=== PATIENT | female | born 1975 | race Hispanic/Latino ===

== ENCOUNTER 2020-06-28 03:59 | Emergency (ER) | payer SELFPAY ==
[2020-06-28 04:25] LABS: #Basophils 0.1 thou/uL (0.0-0.2); #Eosinphils 0.1 thou/uL (0.0-0.7); #Lymphocytes 3.1 thou/uL (1.20-3.40); #Monocytes 0.6 thou/uL (0.11-0.59); #Neutrophils 7.3 thou/uL (1.40-6.50); %Basophils 1.1 % (0.0-1.0); %Eosinophils 1.3 % (0.0-10.0); %Lymphocytes 27.5 % (21.0-51.0); %Monocytes 5.2 % (0.0-10.0); Hemoglobin 13.3 g/dL (12.0-16.0); Mean Corpuscular HGB CONC 33.1 g/dL (32.0-36.0); Mean Corpuscular Hemoglobin 30.1 pg (27.0-31.0); Mean Corpuscular Volume 90.9 fL (78.0-98.0); Mean Platelet Volume 6.5 fL (7.4-10.4); Platelet Count 429 thou/uL (130-400); RBC Distribution Width 13.8 % (11.5-14.5); Red Blood Cell (RBC) Count 4.43 mill/uL (4.20-5.40); White Blood Cell (WBC) Count 11.3 thou/uL (4.8-10.8)
[2020-06-28] MEDS ORDERED: Mag-Al 1200 mg/1200 mg/30 ML UDCUP ONE (04:25)
[2020-06-28] MEDS ORDERED: Lidocaine Viscous Sol 2% 15 ml UD Cup ONE (04:25)
[2020-06-28 04:52] LABS: ALT (SGPT) 23 U/L (8-55); AST (SGOT) 27 U/L (5-34); Albumin 3.8 g/dL (3.5-5.0); Alkaline Phosphatase 144 U/L (40-110); Anion Gap 13 mmol/L (10-20); BUN (Urea Nitrogen) 9 mg/dL (7.0-18.7); Bilirubin, Total 0.3 mg/dL (0.2-1.2); CK (CPK) 89 U/L (29-168); Calc. Creatinine Clearance 0 mL/min (70-130); Calcium 8.6 mg/dL (7.8-10.44); Carbon Dioxide 27 mmol/L (22-29); Chloride 101 mmol/L (98-107); Globulin 3.1 g/dL (2.4-3.5); Glucose 113 mg/dL (70-105); Lipase 12 U/L (8-78); Protein, Total 6.9 g/dL (6.0-8.3); Sodium 137 mmol/L (136-145)
[2020-06-28] MEDS ORDERED: hydrOXYzine 25 MG TAB ONE (05:11)
--- NOTE | 2020-06-28 07:51 | RAD ---
Chest AP view INDICATION: Burning sensation all over chest COMPARISON: Prior exam dated March 06, 2020 FINDINGS: Lungs: The lungs are clear Cardiac silhouette: Mild cardiomegaly is stable Pulmonary vasculature: Normal Pleural spaces: No pleural effusion or pneumothorax is demonstrated. Upper abdomen: No abnormality seen. Osseous structures: No acute osseous abnormality. Additional findings: None. IMPRESSION: No acute cardiopulmonary abnormality.
== END 2020-06-28 05:48 | disposition home or self-care (01) ==
LOC: ERS 03:59
DX: F41.9 Anxiety disorder, unspecified (principal); I10 Essential (primary) hypertension; Z79.899 Other long term (current) drug therapy
CPT/HCPCS: 36415; 71045; 80053; 82550; 83690; 84484; 85025; 93005

== ENCOUNTER 2020-09-24 19:28 | Emergency (ER) | payer SELFPAY ==
[2020-09-24 20:21] LABS: #Basophils 0.1 thou/uL (0.0-0.2); #Eosinphils 0.1 thou/uL (0.0-0.7); #Lymphocytes 2.9 thou/uL (1.20-3.40); #Monocytes 0.7 thou/uL (0.11-0.59); #Neutrophils 6.5 thou/uL (1.40-6.50); %Basophils 1.1 % (0.0-1.0); %Eosinophils 1.1 % (0.0-10.0); %Lymphocytes 27.9 % (21.0-51.0); %Monocytes 6.4 % (0.0-10.0); %Neutrophils 63.5 % (42.0-75.0); Hemoglobin 14.6 g/dL (12.0-16.0); Mean Corpuscular HGB CONC 33.2 g/dL (32.0-36.0); Mean Corpuscular Hemoglobin 31.2 pg (27.0-31.0); Mean Corpuscular Volume 94.1 fL (78.0-98.0); Mean Platelet Volume 6.9 fL (7.4-10.4); Platelet Count 301 thou/uL (130-400); Red Blood Cell (RBC) Count 4.67 mill/uL (4.20-5.40); White Blood Cell (WBC) Count 10.3 thou/uL (4.8-10.8)
[2020-09-24 20:28] LABS: Bilirubin Negative (Negative); Blood, Urine Negative (Negative); Clarity Clear (Clear); Glucose, Urine (Dipstick) Normal (Negative); Ketone, Urine Negative (Negative); Leukocyte Negative Leu/uL (Negative); Nitrite Negative (Negative); Protein, Urine (Dipstick) Negative (Neg-Trace); Specific Gravity, Urine 1.004 (1.002-1.036); Urobilinogen Normal mg/dL (Less than 2); pH, Urine 5.5 (5.0-9.0)
[2020-09-24] MEDS ORDERED: Lorazepam 2 MG/ML VIAL ONE (20:28)
[2020-09-24 20:30] LABS: Pregnancy Test - Urine (BHCG) Negative (Negative); Pregu Control Background? CLEAR/WHITE (CLR/WHITE); Pregu Control Bar Appear? YES (CONTROL BAR); Specific Gravity 1.004 (1.002-1.036)
[2020-09-24 20:37] LABS: Amphetamine Not Detected (NotDetected); Barbiturates Screen Not Detected (NotDetected); Benzodiazepine Screen Not Detected (NotDetected); Cocaine Metabolite Screen Not Detected (NotDetected); Medtox Control Line Valid? VALID (VALID); Medtox Reader # READER 4; Methadone Not Detected (NotDetected); Methamphetamine Not Detected (NotDetected); Opiate Screen Not Detected (NotDetected); Oxycodone Screen Not Detected (NotDetected); Phencyclidine (PCP) Not Detected (NotDetected); THC/Cannabinoid Screen Not Detected (NotDetected); Tricyclic Screen Not Detected (NotDetected)
[2020-09-24 20:41] LABS: ALT (SGPT) 109 U/L (8-55); AST (SGOT) 163 U/L (5-34); Albumin 3.8 g/dL (3.5-5.0); Alkaline Phosphatase 183 U/L (40-110); Anion Gap 20 mmol/L (10-20); BUN (Urea Nitrogen) 5 mg/dL (7.0-18.7); Bilirubin, Total 0.6 mg/dL (0.2-1.2); Calc. Creatinine Clearance 0 mL/min (70-130); Calcium 8.6 mg/dL (7.8-10.44); Carbon Dioxide 19 mmol/L (22-29); Chloride 103 mmol/L (98-107); Globulin 3.7 g/dL (2.4-3.5); Glucose 101 mg/dL (70-105); Potassium 3.5 mmol/L (3.5-5.1); Protein, Total 7.5 g/dL (6.0-8.3); Sodium 138 mmol/L (136-145)
[2020-09-24 21:06] LABS: Acetaminophen Less than 6.0 mcg/mL (10.0-30.0); Alcohol 340 mg/dL (Less than 10); Salicylate Less than 8.0 mg/dL (15.0-30.0)
[2020-09-24] MEDS ORDERED: Haloperidol Lactate 5 MG/ML VIAL ONE (21:39)
[2020-09-25] MEDS ORDERED: Acetaminophen 325 MG TAB ONE (09:23)
[2020-09-25] MEDS ORDERED: clonazePAM 1 MG TAB ONE (09:23)
== END 2020-09-25 10:32 | disposition home or self-care (01) ==
LOC: ERS 19:28
DX: F10.129 Alcohol abuse with intoxication, unspecified (principal); F43.20 Adjustment disorder, unspecified; F41.9 Anxiety disorder, unspecified; Z79.899 Other long term (current) drug therapy
CPT/HCPCS: 36415; 80053; 80306; 80307; 81003; 81025; 84443; 85025; 93005; 96372; 96374; J1630; J2060

== ENCOUNTER 2021-08-11 11:54 | Inpatient (IN) | payer SELFPAY ==
[~2021-08-11 11:54] MED LIST: Iopamidol 370 76% 100 ML VIAL ONE
[2021-08-11] MEDS ORDERED: Lorazepam 2 MG/ML VIAL ONE ×3 (12:51→18:00)
[2021-08-11] MEDS ORDERED: Pantoprazole 40 MG VIAL ONE ×2 (12:51→12:52)
[2021-08-11] MEDS ORDERED: Ondansetron PF 4 MG/2 ML Vial ONE (12:51)
[2021-08-11] MEDS ORDERED: Lidocaine 4% Cream 5 GM TUBE w/ Tegaderm ONE (13:17)
[2021-08-11 13:24] LABS: #Basophils 0.1 thou/uL (0.0-0.2); #Lymphocytes 1.6 thou/uL (1.20-3.40); #Monocytes 0.5 thou/uL (0.11-0.59); #Neutrophils 5.7 thou/uL (1.40-6.50); %Basophils 1.1 % (0.0-1.0); %Eosinophils 0.2 % (0.0-10.0); %Lymphocytes 20.4 % (21.0-51.0); %Neutrophils 72.4 % (42.0-75.0); Hemoglobin 15.2 g/dL (12.0-16.0); Mean Corpuscular HGB CONC 33.5 g/dL (32.0-36.0); Mean Corpuscular Hemoglobin 34.1 pg (27.0-31.0); Mean Platelet Volume 6.6 fL (7.4-10.4); Platelet Count 414 thou/uL (130-400); RBC Distribution Width 15.1 % (11.5-14.5); Red Blood Cell (RBC) Count 4.46 mill/uL (4.20-5.40); White Blood Cell (WBC) Count 7.9 thou/uL (4.8-10.8)
[2021-08-11 13:33] LABS: Prothrombin Time 13.4 sec (12.0-14.7)
[2021-08-11 13:34] LABS: BHCG - Serum Negative (NEGATIVE); PTT 27.4 sec (22.9-36.1); Pregs Control Background? CLEAR/WHITE (CLR/WHITE); Pregs Control Bar Appear? YES (CONTROL BAR)
[2021-08-11 13:51] LABS: ALT (SGPT) 66 U/L (8-55); AST (SGOT) 114 U/L (5-34); Alkaline Phosphatase 181 U/L (40-110); Anion Gap 20 mmol/L (10-20); BUN (Urea Nitrogen) Less than 4 mg/dL (7.0-18.7); Bilirubin, Total 1.3 mg/dL (0.2-1.2); CK (CPK) 139 U/L (29-168); Calc. Creatinine Clearance 0 mL/min (70-130); Calcium 9.4 mg/dL (7.8-10.44); Carbon Dioxide 25 mmol/L (22-29); Chloride 96 mmol/L (98-107); Globulin 4.1 g/dL (2.4-3.5); Glucose 116 mg/dL (70-105); Protein, Total 8.1 g/dL (6.0-8.3); Sodium 138 mmol/L (136-145)
[2021-08-11 14:06] LABS: Potassium 2.7 mmol/L (3.5-5.1)
[2021-08-11] MEDS ORDERED: Magnesium 2 GM/50 ML BAG (IN WATER) ONE (14:33)
[2021-08-11] MEDS ORDERED: NS 0.9% w/ 20 MEQ KCL 1,000 ML ONE ×2 (14:33→18:01)
[2021-08-11 16:02] LABS: Bilirubin Negative (Negative); Blood, Urine Trace (Negative); Clarity Clear (Clear); Glucose, Urine (Dipstick) Negative (Negative); Ketone, Urine Negative (Negative); Leukocyte Negative (Negative); Nitrite Negative (Negative); Protein, Urine (Dipstick) Negative (Neg-Trace); Urobilinogen 0.2 mg/dL (Less than 2)
[2021-08-11 16:09] LABS: RBC/HPF 0-3 HPF (0-3); WBC/HPF 0-3 HPF (0-3)
[2021-08-11] MEDS ORDERED: Ondansetron ODT 4 MG TAB PO PRN ×2 (17:58→18:00)
[2021-08-11] MEDS ORDERED: Ondansetron PF 4 MG/2 ML Vial IVP PRN (17:58)
[2021-08-11] MEDS ORDERED: Acetaminophen 650 MG Suppository PR PRN (17:58)
[2021-08-11] MEDS ORDERED: Acetaminophen 325 MG TAB PO PRN (17:58)
[2021-08-11] MEDS ORDERED: Electrolyte Replacement Protocol 1 EACH FS SCH (18:00)
[2021-08-11] MEDS ORDERED: diphenhydrAMINE 25 MG CAP ONE (18:00)
[2021-08-11] MEDS ORDERED: Thiamine HCl 200 MG/2 ML VIAL SLOW IVP SCH (18:00)
[2021-08-11] MEDS ORDERED: Lorazepam 2 MG/ML VIAL IM PRN (18:00)
[2021-08-11 18:14] LABS: Magnesium 1.7 mg/dL (1.6-2.6)
[2021-08-11] MEDS ORDERED: Electrolyte Replacement Protocol FS PRN (18:15)
[2021-08-11] MEDS ORDERED: Multivit, Therapeutic 1 TAB PO SCH (18:15)
[2021-08-11] MEDS ORDERED: Folic Acid 1 MG TAB PO SCH (18:15)
[2021-08-11 18:58] LABS: Phosphorus 1.5 mg/dL (2.3-4.7)
[2021-08-11] MEDS ORDERED: Bacitracin 1 PK ONE (19:04)
[2021-08-11] MEDS: Sucralfate 1 GM TAB PO SCH (21:22)
[2021-08-11] MEDS: Potassium Chloride 20 MEQ TAB PO SCH (21:27)
[2021-08-11] MEDS: Lorazepam 1 MG TAB PO SCH (21:28)
[2021-08-11] MEDS: Pantoprazole 40 MG VIAL IVP SCH (21:31)
[2021-08-11] MEDS: Lorazepam 1 MG TAB PO PRN (21:33)
[2021-08-11] MEDS: diphenhydrAMINE 25 MG CAP PO PRN (21:35)
[2021-08-11] MEDS ORDERED: Magnesium 2 GM/50 ML 2 GM in Premix Bag 1 BAG IVPB SCH (22:30)
[2021-08-11 22:34] VITALS: BMI 42.4
[2021-08-11 23:32] LABS: Amphetamine Not Detected (NotDetected); Barbiturates Screen Not Detected (NotDetected); Benzodiazepine Screen Detected (NotDetected); Cocaine Metabolite Screen Not Detected (NotDetected); Methadone Not Detected (NotDetected); Methamphetamine Not Detected (NotDetected); Opiate Screen Not Detected (NotDetected); Oxycodone Screen Not Detected (NotDetected); Phencyclidine (PCP) Not Detected (NotDetected); THC/Cannabinoid Screen Not Detected (NotDetected); Tricyclic Screen Not Detected (NotDetected)
[2021-08-12] MEDS: Potassium Chloride 20 MEQ TAB PO SCH ×3 (00:05→03:01)
[2021-08-12] MEDS: PHOS-NAK 1 PKT PACK PO SCH ×6 (00:05→17:49)
[2021-08-12] MEDS: Lorazepam 1 MG TAB PO SCH ×4 (00:23→17:49)
[2021-08-12] MEDS ORDERED: Sodium Chloride 0.9% 1,000 ML IV SCH (05:45)
[2021-08-12] MEDS: diphenhydrAMINE 25 MG CAP PO PRN ×2 (05:59→20:38)
[2021-08-12] MEDS: Sucralfate 1 GM TAB PO SCH ×4 (06:29→20:38)
[2021-08-12] MEDS: Lorazepam 1 MG TAB PO PRN (09:16)
[2021-08-12] MEDS ORDERED: Magnevist 469MG/ML 20 ML VIAL ONE (10:24)
[2021-08-12 10:28] LABS: #Basophils 0.1 thou/uL (0.0-0.2); #Eosinphils 0.1 thou/uL (0.0-0.7); #Lymphocytes 1.1 thou/uL (1.20-3.40); #Monocytes 0.4 thou/uL (0.11-0.59); #Neutrophils 4.4 thou/uL (1.40-6.50); %Basophils 0.9 % (0.0-1.0); %Eosinophils 0.9 % (0.0-10.0); %Lymphocytes 18.7 % (21.0-51.0); %Monocytes 7.2 % (0.0-10.0); %Neutrophils 72.3 % (42.0-75.0); Hemoglobin 13.3 g/dL (12.0-16.0); Mean Corpuscular HGB CONC 32.6 g/dL (32.0-36.0); Mean Corpuscular Hemoglobin 33.8 pg (27.0-31.0); Mean Platelet Volume 6.5 fL (7.4-10.4); Platelet Count 362 thou/uL (130-400); RBC Distribution Width 14.8 % (11.5-14.5); Red Blood Cell (RBC) Count 3.94 mill/uL (4.20-5.40)
[2021-08-12 11:06] LABS: Anion Gap 18 mmol/L (10-20); BUN (Urea Nitrogen) Less than 4 mg/dL (7.0-18.7); Calc. Creatinine Clearance 198 mL/min (70-130); Calcium 8.4 mg/dL (7.8-10.44); Carbon Dioxide 22 mmol/L (22-29); Chloride 103 mmol/L (98-107); Glucose 115 mg/dL (70-105); Potassium 4.1 mmol/L (3.5-5.1); Sodium 139 mmol/L (136-145)
[2021-08-12 11:08] LABS: Phosphorus 1.6 mg/dL (2.3-4.7)
[2021-08-12] MEDS: Multivitamins, Adult 10 ML, Folic Acid 1 MG in Dextrose 5 %-0.45 % NaCl 1,000 ML IV SCH (11:20)
[2021-08-12] MEDS: Pantoprazole 40 MG VIAL IVP SCH ×2 (11:21→20:41)
[2021-08-12] MEDS: Enoxaparin Sodium 40 MG/0.4 ML SYRINGE SC SCH (11:21)
[2021-08-12] MEDS: Multivit, Therapeutic 1 TAB PO SCH (11:22)
[2021-08-12] MEDS: Folic Acid 1 MG TAB PO SCH (11:22)
[2021-08-12] MEDS: Calamine/Zinc Oxide 177 ML LOTION TP SCH ×3 (11:23→20:41)
[2021-08-12] MEDS: Thiamine HCl 200 MG/2 ML VIAL SLOW IVP SCH (11:36)
[2021-08-12 14:46] LABS: SARS-CoV-2 PCR by NAA Not Detected (NotDetected)
[2021-08-12] MEDS ORDERED: Lorazepam 1 MG TAB PO PRN (18:01)
[2021-08-13] MEDS: Lorazepam 1 MG TAB PO SCH ×4 (00:53→15:59)
[2021-08-13] MEDS: diphenhydrAMINE 25 MG CAP PO PRN ×2 (05:50→20:14)
[2021-08-13 06:23] LABS: #Eosinphils 0.1 thou/uL (0.0-0.7); #Lymphocytes 1.5 thou/uL (1.20-3.40); #Monocytes 0.4 thou/uL (0.11-0.59); #Neutrophils 4.8 thou/uL (1.40-6.50); %Basophils 0.5 % (0.0-1.0); %Eosinophils 0.9 % (0.0-10.0); %Lymphocytes 22.2 % (21.0-51.0); %Monocytes 6.4 % (0.0-10.0); Hemoglobin 12.6 g/dL (12.0-16.0); Mean Corpuscular HGB CONC 32.1 g/dL (32.0-36.0); Mean Corpuscular Hemoglobin 33.5 pg (27.0-31.0); Mean Platelet Volume 6.8 fL (7.4-10.4); Platelet Count 354 thou/uL (130-400); RBC Distribution Width 14.7 % (11.5-14.5); Red Blood Cell (RBC) Count 3.74 mill/uL (4.20-5.40); White Blood Cell (WBC) Count 6.8 thou/uL (4.8-10.8)
[2021-08-13] MEDS: Sucralfate 1 GM TAB PO SCH ×4 (06:28→20:14)
[2021-08-13 06:43] LABS: ALT (SGPT) 38 U/L (8-55); AST (SGOT) 64 U/L (5-34); Albumin 3.2 g/dL (3.5-5.0); Alkaline Phosphatase 131 U/L (40-110); Bilirubin, Direct 0.3 mg/dL (0.1-0.3); Bilirubin, Total 1.2 mg/dL (0.2-1.2); Protein, Total 7.1 g/dL (6.0-8.3)
[2021-08-13 07:00] LABS: HBSAB Concentration Less than 8.00 mIU/mL; HBSAg Index 0.27 S/CO (0-0.99); Hep B Surf AB Non-Reactive (NonReactive); Hep B Surf Ag Non-Reactive S/CO (NonReactive); Hep C IgG Ab Non-Reactive (NonReactive); Hep C Index 0.09 S/CO (0-0.79)
[2021-08-13 07:48] LABS: Anion Gap 15 mmol/L (10-20); BUN (Urea Nitrogen) 4 mg/dL (7.0-18.7); Calc. Creatinine Clearance 214 mL/min (70-130); Calcium 7.7 mg/dL (7.8-10.44); Carbon Dioxide 27 mmol/L (22-29); Chloride 103 mmol/L (98-107); Glucose 94 mg/dL (70-105); Phosphorus 2.6 mg/dL (2.3-4.7); Sodium 141 mmol/L (136-145)
[2021-08-13] MEDS ORDERED: Labetalol HCl 100 MG/20 ML VIAL ONE (08:28)
[2021-08-13] MEDS: Calamine/Zinc Oxide 177 ML LOTION TP SCH ×3 (10:06→20:18)
[2021-08-13] MEDS: Multivit, Therapeutic 1 TAB PO SCH (10:06)
[2021-08-13] MEDS: Enoxaparin Sodium 40 MG/0.4 ML SYRINGE SC SCH (10:06)
[2021-08-13] MEDS: Folic Acid 1 MG TAB PO SCH (10:06)
[2021-08-13] MEDS: Pantoprazole 40 MG VIAL IVP SCH ×2 (10:07→20:19)
[2021-08-13] MEDS: Multivitamins, Adult 10 ML, Folic Acid 1 MG in Dextrose 5 %-0.45 % NaCl 1,000 ML IV SCH (10:11)
[2021-08-13] MEDS: Thiamine HCl 200 MG/2 ML VIAL SLOW IVP SCH (10:51)
[2021-08-13] MEDS: Lorazepam 0.5 MG TAB PO SCH (17:04)
[2021-08-13] MEDS ORDERED: Lorazepam 1 MG TAB PO PRN (18:01)
[2021-08-14] MEDS: Lorazepam 0.5 MG TAB PO SCH ×3 (00:27→13:04)
[2021-08-14 06:21] LABS: #Basophils 0.1 thou/uL (0.0-0.2); #Eosinphils 0.1 thou/uL (0.0-0.7); #Lymphocytes 1.8 thou/uL (1.20-3.40); #Monocytes 0.5 thou/uL (0.11-0.59); #Neutrophils 5.5 thou/uL (1.40-6.50); %Basophils 1.2 % (0.0-1.0); %Lymphocytes 22.4 % (21.0-51.0); %Monocytes 6.2 % (0.0-10.0); %Neutrophils 69.3 % (42.0-75.0); Hemoglobin 13.3 g/dL (12.0-16.0); Mean Corpuscular HGB CONC 33.1 g/dL (32.0-36.0); Mean Corpuscular Hemoglobin 34.5 pg (27.0-31.0); Mean Platelet Volume 6.7 fL (7.4-10.4); Platelet Count 381 thou/uL (130-400); RBC Distribution Width 14.8 % (11.5-14.5); Red Blood Cell (RBC) Count 3.86 mill/uL (4.20-5.40)
[2021-08-14] MEDS: Sucralfate 1 GM TAB PO SCH ×4 (06:21→20:57)
[2021-08-14] MEDS: diphenhydrAMINE 25 MG CAP PO PRN ×3 (06:21→20:57)
[2021-08-14 06:42] LABS: Anion Gap 12 mmol/L (10-20); BUN (Urea Nitrogen) 5 mg/dL (7.0-18.7); Calc. Creatinine Clearance 208 mL/min (70-130); Carbon Dioxide 26 mmol/L (22-29); Chloride 104 mmol/L (98-107); Glucose 104 mg/dL (70-105); Phosphorus 2.7 mg/dL (2.3-4.7); Potassium 3.4 mmol/L (3.5-5.1); Sodium 139 mmol/L (136-145)
[2021-08-14] MEDS ORDERED: Potassium Chloride 20 MEQ TAB PO SCH (07:45)
[2021-08-14] MEDS: Multivitamins, Adult 10 ML, Folic Acid 1 MG in Dextrose 5 %-0.45 % NaCl 1,000 ML IV SCH (10:02)
[2021-08-14] MEDS: Pantoprazole 40 MG VIAL IVP SCH ×2 (10:03→20:58)
[2021-08-14] MEDS: Folic Acid 1 MG TAB PO SCH (10:03)
[2021-08-14] MEDS: Enoxaparin Sodium 40 MG/0.4 ML SYRINGE SC SCH (10:03)
[2021-08-14] MEDS: Calamine/Zinc Oxide 177 ML LOTION TP SCH ×3 (10:04→21:10)
[2021-08-14] MEDS: Multivit, Therapeutic 1 TAB PO SCH (10:04)
[2021-08-14] MEDS: Thiamine HCl 200 MG/2 ML VIAL SLOW IVP SCH (10:24)
[2021-08-14 14:54] LABS: Potassium 3.8 mmol/L (3.5-5.1)
[2021-08-14] MEDS ORDERED: Lorazepam 0.5 MG TAB PO PRN (18:01)
[2021-08-14] MEDS ORDERED: Thiamine 100 MG TAB PO SCH (18:15)
[2021-08-15 07:52] VITALS: BP 119/74; TEMP 97.8
[2021-08-15] MEDS: Sucralfate 1 GM TAB PO SCH (08:56)
[2021-08-15] MEDS: Folic Acid 1 MG TAB PO SCH (08:56)
[2021-08-15] MEDS: Enoxaparin Sodium 40 MG/0.4 ML SYRINGE SC SCH (08:56)
[2021-08-15] MEDS: Multivit, Therapeutic 1 TAB PO SCH (08:56)
[2021-08-15] MEDS: Calamine/Zinc Oxide 177 ML LOTION TP SCH (08:57)
[2021-08-15] MEDS: Pantoprazole 40 MG VIAL IVP SCH (08:57)
[2021-08-15] MEDS: Multivitamins, Adult 10 ML, Folic Acid 1 MG in Dextrose 5 %-0.45 % NaCl 1,000 ML IV SCH (09:03)
[2021-08-15] MEDS: Thiamine HCl 200 MG/2 ML VIAL SLOW IVP SCH (09:03)
== END 2021-08-15 11:30 | disposition home or self-care (01) | DRG 896 ==
LOC: ERS 11:54 → SURG B 17:26
PROVIDERS: ADMIT Internal Medicine; ATTEND Internal Medicine
DX: F10.239 Alcohol dependence with withdrawal, unspecified (principal); K29.21 Alcoholic gastritis with bleeding; Z68.41 Body mass index [BMI] 40.0-44.9, adult; Z20.822 Contact with and (suspected) exposure to COVID-19; E87.6 Hypokalemia; E66.9 Obesity, unspecified; K70.10 Alcoholic hepatitis without ascites; B88.8 Other specified infestations; K76.0 Fatty (change of) liver, not elsewhere classified; Z88.6 Allergy status to analgesic agent; Z88.8 Allergy status to other drugs, medicaments and biological substances; Z79.899 Other long term (current) drug therapy; Z90.49 Acquired absence of other specified parts of digestive tract
CPT/HCPCS: 36415; 74177; 74183; 80048; 80053; 80076; 80306; 81003; 82274; 82550; 83630; 83735; 84100; 84484; 84703; 85025; 85610; 85730; 86706; 86708; 86803; 86850; 86900; 86901; 87045; 87046; 87324; 87340; 87427; 87449; 93005; A9579; C9113; J1650; J2060; J2405; J3411; J3475; J3480; J7042; J7050; Q9967; U0003; U0005

== ENCOUNTER 2024-02-16 03:07 | Emergency (ER) | payer OTHER ==
[2024-02-16] MEDS ORDERED: Naloxone HCl 0.4 mg/ml Vial ONE (03:25)
[2024-02-16] MEDS ORDERED: Naloxone HCl 2 mg/2 ml Syringe ONE (03:28)
[2024-02-16 04:22] LABS: #Basophils Less than 0.03 10x3/uL (0.0-0.2); %Basophils 0.1 % (0.0-1.0); %Eosinophils 0.3 % (0.0-10.0); %Lymphocytes 9.3 % (21.0-51.0); %Monocytes 4.6 % (0.0-10.0); %Neutrophils 85.3 % (42.0-75.0); Hematocrit 37.6 % (36.0-47.0); Hemoglobin 12.1 g/dL (12.0-16.0); Mean Corpuscular HGB CONC 32.2 g/dL (32.0-36.0); Mean Corpuscular Hemoglobin 27.7 pg (27.0-31.0); Platelet Count 352 10x3/uL (130-400); RBC Distribution Width 14.7 % (11.5-14.5); Red Blood Cell (RBC) Count 4.37 mill/uL (4.20-5.40)
[2024-02-16 04:24] LABS: BHCG - Serum Negative (NEGATIVE); Pregs Control Background? CLEAR/WHITE (CLR/WHITE); Pregs Control Bar Appear? YES (CONTROL BAR)
[2024-02-16 04:35] LABS: Lipase 21 U/L (8-78)
[2024-02-16 04:36] LABS: ALT (SGPT) 26 U/L (8-55); AST (SGOT) 22 U/L (5-34); Albumin 3.4 g/dL (3.5-5.0); Alkaline Phosphatase 117 U/L (40-110); Anion Gap 14 mmol/L (10-20); BUN (Urea Nitrogen) 11 mg/dL (7.0-18.7); Bilirubin, Total 0.3 mg/dL (0.2-1.2); CK (CPK) 55 U/L (29-168); Calc. Creatinine Clearance 0 mL/min (70-130); Calcium 9.2 mg/dL (7.8-10.44); Carbon Dioxide 24 mmol/L (22-29); Chloride 106 mmol/L (98-107); Estimated GFR 90; Glucose 126 mg/dL (70-105); Potassium 3.5 mmol/L (3.5-5.1); Protein, Total 7.4 g/dL (6.0-8.3); Sodium 140 mmol/L (136-145)
[2024-02-16 04:37] LABS: Acetaminophen Less than 10 mcg/mL (10.0-30.0); Alcohol Less than 10.0 mg/dL (Less than 10); Salicylate Less than 8.0 mg/dL (15.0-30.0)
[2024-02-16 04:39] LABS: Troponin I Less than 0.010 ng/mL (< 0.028)
[2024-02-16 04:56] LABS: Amphetamine Detected (NotDetected); Barbiturates Screen Not Detected (NotDetected); Benzodiazepine Screen Detected (NotDetected); Cocaine Metabolite Screen Not Detected (NotDetected); Methadone Not Detected (NotDetected); Methamphetamine Not Detected (NotDetected); Opiate Screen Not Detected (NotDetected); Oxycodone Screen Not Detected (NotDetected); Phencyclidine (PCP) Not Detected (NotDetected); THC/Cannabinoid Screen Not Detected (NotDetected); Tricyclic Screen Not Detected (NotDetected)
[2024-02-16] MEDS ORDERED: Ondansetron PF 4 MG/2 ML Vial ONE (04:58)
[2024-02-16 05:02] LABS: Bacteria/HPF None Seen HPF (None Seen); Bilirubin Negative (Negative); Blood, Urine Negative (Negative); CAUTI Indications for Culture Alt mental st,lethar; Clarity Clear (Clear); Glucose, Urine (Dipstick) Normal (Negative); Ketone, Urine Negative (Negative); Leukocyte Negative Leu/uL (Negative); Nitrite Negative (Negative); Protein, Urine (Dipstick) Negative (Neg-Trace); RBC/HPF 0-3 HPF (0-3); Specific Gravity, Urine 1.014 (1.002-1.036); Squamous Epithelial 0-3 HPF (0-3); Urobilinogen Normal mg/dL (Less than 2); WBC/HPF 0-3 HPF (0-3)
[2024-02-16 05:05] LABS: Urine Culture Reflex No No
== END 2024-02-16 05:23 | disposition home or self-care (01) ==
LOC: ERS 03:07
DX: R41.82 Altered mental status, unspecified (principal); F19.90 Other psychoactive substance use, unspecified, uncomplicated
CPT/HCPCS: 36415; 51701; 70450; 71045; 80053; 80306; 80307; 81001; 82140; 82550; 83690; 84443; 84484; 84703; 85025; 87040; 96361; 96374; 96375; J2310; J2405